=== PATIENT | male | born 1980 ===

== ENCOUNTER 2019-03-12 05:57 | Emergency (ER) | payer BC, MEDICARE ==
[2019-03-12 05:57] VITALS: BMI 25.5
[2019-03-12] MEDS ORDERED: Sodium Chloride 0.9% 1,000 ML IV ONE (06:29)
--- NOTE | 2019-03-12 06:36 | C.PDOC ---
History Of Present Illness 38 year old male brought in by EMS for altered mental status. Mother notes earlier today patient was "out of it", not speaking much, at one point mouth was drooping, had blank stare on his face, and somehow indicated his arms and legs were hurting. Eventually mother noticed he was ambulatory and they went to sleep, but in the middle of the night she heard banging and found him having a seizure. She describes it as a generalized tonic clonic seizure with foaming at the mouth. Mother denies patient has any Hx of seizures except febrile seizures as a child. As far as she knows patient does not do any drugs or use ETOH but mentions he did have a narcotic addiction after being prescribed morphine for back surgery years ago. Patient is currently nonverbal which mother states is not baseline for him. <Lakeisha Phillips - Last Filed: 03/12/19 06:36> History Per: Family History/Exam Limitations: Clinical Condition Onset/Duration Of Symptoms: Hrs Current Symptoms Are (Timing): Still Present Usual Baseline: Alert Oriented Exacerbating Factor(s): Unknown <Lakeisha Phillips - Last Filed: 03/12/19 06:36> <Parish Garcia - Last Filed: 03/12/19 10:06> Time Seen by Provider: 03/12/19 06:05 Chief Complaint (Nursing): Altered Mental Status Past Medical History Reviewed: Historical Data, Nursing Documentation, Vital Signs Vital Signs: Last Vital Signs Temp 100.7 F H 03/12/19 06:07 Pulse 148 H 03/12/19 06:07 Resp 24 03/12/19 06:07 BP 188/109 H 03/12/19 06:07 Pulse Ox 98 03/12/19 06:07 - Medical History PMH: Denies: Depression - [facility] Procedures INJECT/INFUSE NEC (11/14/12) Family History: States: Unknown Family Hx - Social History Hx Tobacco Use: Yes (PPD) Hx Alcohol Use: No Hx Substance Use: Yes - Immunization History Hx Tetanus Toxoid Vaccination: No Hx Influenza Vaccination: No Hx Pneumococcal Vaccination: No <Lakeisha Phillips - Last Filed: 03/12/19 06:36> Vital Signs: Last Vital Signs Temp 100.0 F H 03/12/19 07:30 Pulse 94 H 03/12/19 08:50 Resp 16 03/12/19 08:50 BP 151/107 H 03/12/19 08:50 Pulse Ox 96 03/12/19 08:50 - [facility] Procedures INJECT/INFUSE NEC (11/14/12) <RadhaParish Harrison - Last Filed: 03/12/19 10:06> Review Of Systems Review Of Systems: ROS cannot be obtained secondary to pt's inabilty to answer questions. <JacquelineLakeisha Barton - Last Filed: 03/12/19 06:36> Physical Exam - Physical Exam Appears: Other (Awake, eyes are open but does not make eye contact, non verbal, appears almost catatonic) Skin: Normal Color, Warm Head: Atraumatic, Normacephalic Eye(s): bilateral: Other (3mm and mildly reactive to light, mild horizontal nystagmus) Oral Mucosa: Moist Chest: Symmetrical Cardiovascular: Rhythm Regular (Tachycardic) Respiratory: Normal Breath Sounds, No Rales, No Rhonchi, No Wheezing Gastrointestinal/Abdominal: Soft, No Tenderness, No Distention Neurological/Psych: Other (Not following commands) <ShelbymatthewaugustinejaredLakeisha Barton - Last Filed: 03/12/19 06:36> ED Course And Treatment ECG: Interpreted By Me, Viewed By Me ECG Rhythm: Sinus Tachycardia ECG Interpretation: Normal Interpretation Of ECG: Normal axis, normal intervals, no st elevations, t wave inversions in inferior leads Rate From EC O2 Sat by Pulse Oximetry: 98 (room air) Pulse Ox Interpretation: Normal <Lakeisha Phillips - Last Filed: 03/12/19 06:36> - Laboratory Results Result Diagrams: 03/12/19 06:48 03/12/19 06:48 Lab Results: pO2 49 mm/Hg (30-55) 03/12/19 06:50 VBG pH 7.40 (7.32-7.43) 03/12/19 06:50 VBG pCO2 41 mmHg (40-60) 03/12/19 06:50 VBG HCO3 25.0 mmol/L 03/12/19 06:50 VBG Total CO2 26.7 mmol/L (22-28) 03/12/19 06:50 VBG O2 Sat (Calc) 91.0 % (40-65) H 03/12/19 06:50 VBG Base Excess 0.5 mmol/L (0.0-2.0) 03/12/19 06:50 VBG Potassium 3.4 mmol/L (3.6-5.2) L 03/12/19 06:50 Sodium 139.0 mmol/l (132-148) 03/12/19 06:50 Chloride 105.0 mmol/L (98-107) 03/12/19 06:50 Glucose 138 mg/dl (75-110) H 03/12/19 06:50 Lactate 2.5 mmol/L (0.7-2.1) H 03/12/19 06:50 Total Bilirubin 0.2 mg/dL (0.2-1.3) 03/12/19 06:48 AST 31 U/L (17-59) 03/12/19 06:48 ALT 27 U/L (21-72) 03/12/19 06:48 Alkaline Phosphatase 108 U/L (38-126) 03/12/19 06:48 Total Protein 7.9 g/dL (6.3-8.3) 03/12/19 06:48 Albumin 4.6 g/dL (3.5-5.0) 03/12/19 06:48 Globulin 3.3 gm/dL (2.2-3.9) 03/12/19 06:48 Albumin/Globulin Ratio 1.4 (1.0-2.1) 03/12/19 06:48 Urine Color Yellow (YELLOW) 03/12/19 06:48 Urine Clarity Hazy (Clear) 03/12/19 06:48 Urine pH 6.0 (5.0-8.0) 03/12/19 06:48 Ur Specific [place] 1.023 (1.003-1.030) 03/12/19 06:48 Urine Protein Negative mg/dL (NEGATIVE) 03/12/19 06:48 Urine Glucose (UA) Normal mg/dL (Normal) 03/12/19 06:48 Urine Ketones Negative mg/dL (NEGATIVE) 03/12/19 06:48 Urine Blood Negative (NEGATIVE) 03/12/19 06:48 Urine Nitrate Negative (NEGATIVE) 03/12/19 06:48 Urine Bilirubin Negative (NEGATIVE) 03/12/19 06:48 Urine Urobilinogen Normal mg/dL (0.2-1.0) 03/12/19 06:48 Ur Leukocyte Esterase Trace Dae/uL (Negative) 03/12/19 06:48 Urine WBC (Auto) 1 /hpf (0-5) 03/12/19 06:48 Urine RBC (Auto) 6 /hpf (0-3) H 03/12/19 06:48 Urine Bacteria Rare (<OCC) 03/12/19 06:48 Hyaline Casts 0-2 /lpf (0-2) 03/12/19 06:48 <[facility] - Last Filed: 03/12/19 10:06> Medical Decision Making Medical Decision Making: Plan: * Blood work * UA * CXR * CT head * EKG * IV fluids <ShelbyLakeisha segovia Oralia - Last Filed: 03/12/19 06:36> Disposition <Lakeisha Phillips Oralia - Last Filed: 03/12/19 06:36> Comment: Patient signed out to me at change of shift pending drug screen, CT Head, reassessment. Patient at time I evaluated, awake, alert, oriented x 3, following commands. CT Head negative for acute pathology. Drug screen returned positive for polysubstance including cocaine, benzos, PCP, methadone. Patient wished to leave AMA. I explained the risks of leaving including to the extent of or permanent disability. Patient verbalized this back to me. Instructed to return for any problem. Counseled Patient/Family Regarding: Studies Performed, Diagnosis, Need For Followup - Disposition Disposition Time: 10:04 <Parish Garcia - Last Filed: 03/12/19 10:06> - Disposition Disposition: AGAINST MEDICAL ADVICE Condition: FAIR Forms: [facility] (Wallisian) - Clinical Impression Clinical Impression: Polysubstance abuse - Scribe Statement The provider has reviewed the documentation as recorded by the Scribe Adi Lopez All medical record entries made by the Scribe were at my direction and personally dictated by me. I have reviewed the chart and agree that the record accurately reflects my personal performance of the history, physical exam, medical decision making, and the department course for this patient. I have also personally directed, reviewed, and agree with the discharge instructions and disposition. <Lakeisha Phillips - Last Filed: 03/12/19 06:36>
[2019-03-12 06:51] LABS: BASO % 0.3 % (0.0-2.0); EOS # 0.1 K/uL (0.0-0.7); EOS % 1.5 % (0.0-4.0); HEMOGLOBIN 13.2 g/dL (12.0-18.0); LYMPH # 3.2 K/uL (1.0-4.3); LYMPH % 41.8 % (20.0-40.0); MEAN CELL VOLUME 85.8 fL (80.0-94.0); MEAN CORPUSCULAR HEMOGLOBIN 29.1 pg (27.0-31.0); MEAN CORPUSCULAR HGB CONC 33.9 g/dL (33.0-37.0); MEAN PLATELET VOLUME 8.9 fL (7.2-11.7); MONO # 0.5 K/uL (0.0-0.8); MONO % 6.9 % (0.0-10.0); NEUT # 3.7 K/uL (1.8-7.0); NEUT % 49.5 % (50.0-75.0); NRBC % 0.1 % (0.0-2.0); RBC 4.56 Mil/uL (4.40-5.90); RED CELL DISTRIBUTION WIDTH 13.6 % (11.5-14.5); WHITE BLOOD COUNT 7.6 K/uL (4.8-10.8)
[2019-03-12 06:54] LABS: URINE BACTERIA RARE (<OCC); URINE BILIRUBIN NEGATIVE (NEGATIVE); URINE BLOOD NEGATIVE (NEGATIVE); URINE CLARITY Hazy (Clear); URINE COLOR Yellow (YELLOW); URINE GLUCOSE (UA) NORMAL (Normal); URINE HYALINE CAST 0-2 /lpf (0-2); URINE LEUKOCYTE ESTERASE TRACE Leu/uL (Negative); URINE PROTEIN NEGATIVE (NEGATIVE); URINE UROBILINOGEN NORMAL mg/dL (0.2-1.0)
[2019-03-12 06:54] LABS: VENOUS BLOOD GAS BASE EXCESS 0.5 mmol/L (0.0-2.0); VENOUS BLOOD GAS PCO2 41 mmHg (40-60); VENOUS BLOOD GAS PO2 49 mm/Hg (30-55)
[2019-03-12] MEDS ORDERED: Sodium Chloride 0.9% 1,000 ML ONE (06:55)
[2019-03-12 07:07] LABS: ALB/GLOB RATIO 1.4 (1.0-2.1); ALBUMIN 4.6 g/dL (3.5-5.0); ALT/SGPT 27 U/L (21-72); AST/SGOT 31 U/L (17-59); BLOOD UREA NITROGEN 15 mg/dL (9-20); CALCIUM 9.7 mg/dl (8.6-10.4); GFR NON-AFRICAN AMERICAN > 60
[2019-03-12 07:10] LABS: BARBITURATES, UR NEGATIVE (NEGATIVE)
[2019-03-12 07:30] VITALS: TEMP 100
--- NOTE | 2019-03-12 08:12 | RAD ---
Date of service: 03/12/2019 HISTORY: Detox/Psy COMPARISON: None available. TECHNIQUE: 1 view obtained. FINDINGS: LUNGS: Poor inspiration with low lung volumes, crowded bronchovascular markings and mild bibasilar atelectasis. PLEURA: No significant pleural effusion identified, no pneumothorax apparent. CARDIOVASCULAR: No aortic atherosclerotic calcification present. Normal cardiac size. No pulmonary vascular congestion. OSSEOUS STRUCTURES: No significant abnormalities. VISUALIZED UPPER ABDOMEN: Normal. OTHER FINDINGS: None. IMPRESSION: Poor inspiration with low lung volumes, crowded bronchovascular markings and mild bibasilar atelectasis.
--- NOTE | 2019-03-12 08:18 | CT ---
Date of service: 03/12/2019 PROCEDURE: CT HEAD WITHOUT CONTRAST. HISTORY: altered mental status COMPARISON: None available. TECHNIQUE: Axial computed tomography images were obtained through the head/brain without intravenous contrast. Radiation dose: Total exam DLP = 966.51 mGy-cm. This CT exam was performed using one or more of the following dose reduction techniques: Automated exposure control, adjustment of the mA and/or kV according to patient size, and/or use of iterative reconstruction technique. FINDINGS: HEMORRHAGE: No intracranial hemorrhage. BRAIN: Hudson-white matter differentiation is preserved. There is no mass, mass effect or abnormal extra-axial fluid collection. There is no territorial infarction. The midline sagittal structures are normal. VENTRICLES: The ventricles are normal in size, shape and configuration. CALVARIUM: There is no calvarial fracture or extracranial soft tissue swelling. PARANASAL SINUSES: Predominantly clear. MASTOID AIR CELLS: Predominantly clear. OTHER FINDINGS: None. IMPRESSION: No acute intracranial abnormality. A preliminary report was provided by [facility].
[2019-03-12 08:21] LABS: BENZODIAZEPINES, UR POSITIVE (NEGATIVE); OPIATES, UR POSITIVE (NEGATIVE)
[2019-03-12 08:49] LABS: PHENCYCLIDINE, UR POSITIVE (NEGATIVE)
[2019-03-12 08:54] VITALS: BP 151/107; PULSE 94; RESP 16; O2SAT 96
--- NOTE | 2019-03-16 15:48 | CARD ---
APPROVED REPORT Date of service: 03/12/2019 EKG Measurement Heart [id number] <Conclusion> Sinus tachycardia Nonspecific T wave abnormality Abnormal ECG
== END 2019-03-12 10:06 | disposition left against medical advice (07) ==
LOC: C.ER 05:57
DX: F19.10 Other psychoactive substance abuse, uncomplicated (principal)
CPT/HCPCS: 70450; 71045; 80053; 81001; 82803; 82948; 83735; 84100; 85025; 87040; 99285; G0480; J7030